=== PATIENT | male | born 1970 | race Caucasian/White ===

== ENCOUNTER 2024-09-01 09:08 | Outpatient (CLI) | payer BC, SELFPAY | END 2024-09-01 09:09 | disposition home or self-care (01) | PROVIDERS: PCP Family Medicine; Visit Provider Family Medicine | DX: E78.2 Mixed hyperlipidemia (principal); I10 Essential (primary) hypertension; Z12.5 Encounter for screening for malignant neoplasm of prostate | CPT/HCPCS: 80048; 80061; G0103 ==